=== PATIENT | female | born 1990 | race Caucasian/White ===

== ENCOUNTER 2016-05-30 09:58 | Emergency (ER) | payer MEDICAID, OTHER ==
[~2016-05-30] VITALS: Ht 154.9 cm; Wt 80.5 kg
[~2016-05-30 09:58] MED LIST: LAMO100T2 PO; NAPR250T PO
[2016-05-30 10:09] VITALS: BP 119/87; PULSE 87; RESP 14; O2SAT 96
[2016-05-30] MEDS ORDERED: 0.9% Sodium Chloride 1,000 ML IV ONE ×2 (10:29→12:00)
[2016-05-30] MEDS ORDERED: Ondansetron 2 mg/mL 2 mL Inj IVPUSH ONE (10:30)
--- NOTE | 2016-05-30 10:30 | ED.REPORT ---
HPI-Abd Pain F Under 41 Date of Service May 30, 2016 ED Provider: Bri Waldron MD Patient is a 25 year old female who presents to the ED due to vomiting for the past 3 days. She c/o associated diarrhea and nausea, and reports her stool is bright green. She lost control of her bowels three days ago. She had one normal bowel movement yesterday but had diarrhea again this morning. Many people are sick at her work as well. Pt denies SOB, dizziness and chest pain. Nursing Notes Stated Complaint: NAUSEA,VOMITING,DIARRHEA Chief Complaint: Female Abdominal Pain Nursing Notes Reviewed: Yes Allergies: Coded Allergies: Grass (Verified Allergy, Mild, 10/27/14) Scheduled Lamotrigine (Lamotrigine) 100 Mg Tablet 100 MG PO HS Scheduled PRN Naproxen (Naproxen) 250 Mg Tablet Unknown Dose PO BID PRN PRN For Pain Ondansetron (Zofran) 4 Mg Tablet 4 MG PO Q4H PRN PRN For Nausea General Time Seen by MD: 10:27 Chief Complaint Vomiting moderate Hx Obtained From: Patient Arrived By: Walk-in Sudden in Onset?: Yes Symptom Duration: Since onset Progression since Onset: Gradually worsening Severity: Current: No pain currently Recent Healthcare: No recent doctor visit, No recent hospitalization Similar Sx Previous: No Past Medical History Past Medical History negative Past Surgical History negative Smoking History Current Every Day Smoker, Smoker Current Status UNK Social History Drug Use: THC Ambulatory Status Independent Review of Systems Respiratory: Denies: Shortness of breath Cardiovascular: Denies: Chest pain GI: Reports: Diarrhea, Nausea, Vomiting Complete sys rev & neg: except as marked. Neurologic: Denies: Dizziness Physical Exam Initial Vital Signs Vital Signs (First) Date Time Temp Pulse Resp B/P Pulse Ox O2 Delivery O2 Flow Rate FiO2 05/30/16 10:09 36.2 87 14 119/87 96 Room Air Neck: Supple, Non-tender, Full range of motion Extremities: Vascular intact, Neuro intact, No swelling, No tenderness Skin: Warm, Dry, No cyanosis Neurologic: Alert, Oriented, Nonfocal Psychiatric: Mood/affect normal, Behavior normal, Normal thought content General/Constitutional: Awake, Alert, Well appearing, Cooperative, Not toxic appearing Respiratory / Chest: Atraumatic, Breath sounds NL, Breath sounds = bilat, No respiratory distress, No rales, No rhonchi, No wheezing, No retractions Cardiovascular: Heart rate NL, Regular rhythm, Heart sounds NL, No gallop, No murmurs, No rubs Abdomen: Atraumatic, Soft, Non-tender, No guarding, No rebound, BS normoactive Back: Atraumatic, Inspection NL, Full range of motion, Painless range of motion , Non-tender, No midline vertebral tend ENT: Atraumatic Mouth: Positive: Mucous membranes dry Interpretation & Diagnostics Lab Results Interpretation Result Diagram: 05/30/16 1102 05/30/16 1102 Test 05/30/16 11:02 05/30/16 12:49 White Blood Count 7.5th/mm3 (3.8-10.1) Red Blood Count 4.87mil/mm3 (3.90-5.20) Hemoglobin 14.0g/dL (12.0-15.6) Hematocrit 40.6% (35.0-46.0) Mean Corpuscular Volume 83.4fL (81-100) Mean Corpuscular Hemoglobin 28.7pg (27.0-35.0) Mean Corpuscular Hemoglobin Concent 34.5% (32.0-37.0) Red Cell Distribution Width 13.0% (12.3-15.4) Platelet Count 197bil/L (150-400) Neutrophils (%) (Auto) 64.5% (40-74) Lymphocytes (%) (Auto) 26.4% (14-46) Monocytes (%) (Auto) 8.0% (4-12) Eosinophils (%) (Auto) 0.7% (0-5) Basophils (%) (Auto) 0.3% (0-3) Sodium Level 139mEq/L (134-144) Potassium Level 3.8mEq/L (3.5-5.2) Chloride Level 101mEq/L (97-108) Carbon Dioxide Level 24mmol/L (18-29) Blood Urea Nitrogen 15mg/dL (6-20) Creatinine 0.51mg/dL (0.57-1.00) Estimat Glomerular Filtration Rate 212mL/min (>59) Glucose Level 86mg/dL (60-99) Calcium Level 9.1mg/dL (8.5-10.1) Magnesium Level 2.0mg/dL (1.6-2.6) Total Bilirubin 0.7mg/dL (0.0-1.2) Aspartate Amino Transf (AST/SGOT) 18U/L (0-50) Alanine Aminotransferase (ALT/SGPT) 14U/L (0-32) Alkaline Phosphatase 63U/L (25-150) Total Protein 7.2g/dL (6.4-8.4) Albumin 4.5g/dL (3.4-5.0) Lipase 16U/L (13-60) Hold Urine Received (Received) Re-Eval/Medical Decision Re-Evaluation/Progress : Time of Eval: 12:00 )( Re-Eval Abdomen: Soft Patient Status: Condition improved Counseled Regarding: Diagnosis, Lab results, Need for follow-up, When/why to return to ED Discharge & Departure Primary Impression: Gastroenteritis Disposition: Home Discharge Condition All VS Reviewed: Yes Condition: Stable Additional Instructions: Thank you for coming to the Emergency Department today. Please take medication as directed. Zofran for nausea has been electronically sent to [facility] for you today. Rest and keep well hydrated, drink plenty of fluids. Return to the Emergency Department if you experience any new or worsening symptoms. We hope you feel better soon! Referrals: Addie Weaver MD (PCP) [place] Attestation Portion of this note were transcribed by Paul Jay. I, Dr. Waldron, personally performed the history, physical exam, and medical decision-making: I reviewed and confirmed the accuracy for the information in the transcribed note. Signed by: magalys Rodriguez, 05/30/16 1240 copies to: Addie Weaver MD, Shawna L MD May 30, 2016 10:30 PAUL JAY May 30, 2016 10:48
[2016-05-30 11:35] LABS: BASOPHILS % (AUTO) 0.3 % (0-3); EOSINOPHILS % (AUTO) 0.7 % (0-5); Mean Corpuscular Hemoglobin 28.7 pg (27.0-35.0); Mean Corpuscular Volume 83.4 fL (81-100); NEUTROPHILS % (AUTO) 64.5 % (40-74); Platelet Count 197 bil/L (150-400)
[2016-05-30] MEDS ORDERED: ONDA4TAB6 PO (12:23)
[2016-05-30 12:59] VITALS: BP 128/75; PULSE 69; RESP 15; O2SAT 100
== END 2016-05-30 12:55 | disposition home or self-care (01) ==
LOC: SED 09:58
DX: K52.9 Noninfective gastroenteritis and colitis, unspecified (principal); F17.200 Nicotine dependence, unspecified, uncomplicated
CPT/HCPCS: 36415; 80053; 81025; 83690; 83735; 85025; 96361; 96374; 99284; J2405; J7030